=== PATIENT | female | born 1960 | race Caucasian/White ===

== ENCOUNTER 2019-10-30 02:21 | Observation (INO) | payer MEDICAID ==
[~2019-10-30] VITALS: Ht 162.6 cm; Wt 91.3 kg
[2019-10-30] MEDS ORDERED: GUAISYP9 PO (02:59)
[2019-10-30] MEDS ORDERED: AMBI10TA PO (02:59)
[2019-10-30] MEDS ORDERED: GABA-1171 PO (02:59)
[2019-10-30] MEDS ORDERED: IPRA0.00 NEB (02:59)
[2019-10-30] MEDS ORDERED: duo neb (02:59)
[2019-10-30] MEDS ORDERED: NS 1,000 ML IV ONE (03:45)
[2019-10-30 04:12] LABS: BASO # 0.1 10^3/uL (0.0-0.2); BASO % 0.9 % (0.0-1.0); EOS # 0.7 10^3/uL (0.0-0.5); EOS % 6.8 % (0.0-3.0); HEMATOCRIT 37.1 % (36.0-47.0); HEMOGLOBIN 11.9 g/dl (12.0-15.5); LYMPH # 2.2 10^3/uL (1.5-5.0); LYMPH % 22.4 % (24.0-44.0); MEAN CORPUSCULAR HEMOGLOBIN 29.8 pg (27.0-33.0); MEAN CORPUSCULAR HGB CONC 32.1 g/dl (32.0-36.5); MONO # 0.8 10^3/uL (0.0-0.8); NEUTROPHILS % 61.5 % (36.0-66.0); PLATELET COUNT, AUTOMATED 344 10^3/uL (150-450); RED BLOOD COUNT 3.99 10^6/uL (4.00-5.40); WHITE BLOOD COUNT 9.7 10^3/uL (4.0-10.0)
[2019-10-30 04:50] LABS: ACETAMINOPHEN LEVEL < 2.0 UG/ML (10.0-30.0); BLOOD UREA NITROGEN 17 MG/DL (7-18); CALCIUM LEVEL 8.7 MG/DL (8.5-10.1); CARBON DIOXIDE LEVEL 29 MEQ/L (21-32); CHLORIDE LEVEL 108 MEQ/L (98-107); CREATININE FOR GFR 0.99 MG/DL (0.55-1.30); ETHYL ALCOHOL (ETHANOL) < 0.003 % (0.000-0.010); GLOMERULAR FILTRATION RATE > 60.0 (>51); GLUCOSE, FASTING 105 MG/DL (70-100); POTASSIUM SERUM 4.1 MEQ/L (3.5-5.1); SALICYLATE LEVEL < 1.7 MG/DL (5.0-30.0); SODIUM LEVEL 143 MEQ/L (136-145)
[2019-10-30 05:13] LABS: AMPHETAMINES LEVEL URINE NEGATIVE (NEGATIVE); BARBITURATES URINE NEGATIVE (NEGATIVE); BENZODIAZEPINES URINE NEGATIVE (NEGATIVE); CANNABINOIDS URINE NEGATIVE (NEGATIVE); COCAINE METABOLITE URINE NEGATIVE (NEGATIVE); METHADONE URINE NEGATIVE (NEGATIVE); OPIATES URINE NEGATIVE (NEGATIVE); PHENCYCLIDINE URINE NEGATIVE (NEGATIVE)
[2019-10-30 08:32] LABS: ABG BASE EXCESS -1.9 (-2.0-2.0); ABG HCO3 21.1 MEQ/L (22.0-26.0); ABG PARTIAL PRESSURE CO2 30.5 mmHg (35.0-45.0); ABG PARTIAL PRESSURE O2 144.4 mmHg (75.0-100.0); ABG STANDARD HCO3 22.9 MEQ/L (22.0-26.0); ABG pH (ARTERIAL) 7.458 UNITS (7.350-7.450)
[2019-10-30] MEDS ORDERED: HYDR-3713 PO (08:47)
[2019-10-30] MEDS ORDERED: ALBU8.5H INH (08:47)
[2019-10-30] MEDS ORDERED: VARE1TA PO (08:47)
[2019-10-30] MEDS ORDERED: CYCL-707 PO (08:52)
[2019-10-30] MEDS ORDERED: IBUP-1022 PO (08:52)
[2019-10-30] MEDS ORDERED: BUPR50TA PO (08:52)
[2019-10-30] MEDS ORDERED: VITA50005 PO (08:52)
[2019-10-30] MEDS ORDERED: SERT-138 PO (08:52)
[2019-10-30] MEDS ORDERED: DULO1CAP6 PO (08:52)
[2019-10-30] MEDS ORDERED: DULO1CAP5 PO (08:52)
[2019-10-30] MEDS ORDERED: ZOLP10TA2 PO (08:52)
--- NOTE | 2019-10-30 10:32 | ECGEPIP ---
[facility] - ED Test Date: 2019-10-30 Pat Name: PERLA MENDOZA Department: Room: - Gender: Female [employer]im[employer]: kk : [id number] Requested By: DEWAYNE [place] Order Number: [id number] Reading MD: Sandy Cruz Measurements Intervals [place] Rate: 95 P: 78 WA: 150 QRS: 81 QRSD: 97 T: 58 QT: 356 QTc: 448 Interpretive Statements SINUS RHYTHM NSTTW abnormalities No prior Electronically Signed on 10-30-2019 10:32:06 EDT by Sandy Cruz
--- NOTE | 2019-10-30 10:44 | REP ---
Clinical: Altered mental status . Comparison: None . Findings: The ventricles, sulci, and cisterns are normal in position and appearance. Villeda-white differentiation is maintained. No acute intracranial hemorrhage, mass/mass effect, pathology or trauma/injury. No evidence for acute infarction. No extra-axial fluid collection. Calvarium is intact. Large mucocele identified in the right maxillary sinus. Impression: Normal noncontrast head CT. No evidence for acute intracranial pathology or trauma/injury. Electronically Signed by Edy Dominguez MD 10/30/2019 10:37 A
--- NOTE | 2019-10-30 12:13 | REP ---
Clinical: Wheezing. Technique: PA and lateral. Comparison: None. Findings: Chronic scoliosis. The cardiac silhouette is normal. Lung jules are relatively clear and without focal consolidation, effusion, or pneumothorax. Impression: No focal consolidation or effusion. Electronically Signed by Edy Dominguez MD 10/30/2019 12:05 P
[2019-10-30 13:03] VITALS: BP 133/77
[2019-10-30] MEDS ORDERED: ALBUTEROL 90 MCG/ACT 8GM HFA INHALER INH PRN (13:30)
[2019-10-30] MEDS ORDERED: CYCLOBENZAPRINE 10MG TABLET PO PRN (13:30)
[2019-10-30] MEDS ORDERED: IBUPROFEN 600MG TAB PO PRN (13:30)
--- NOTE | 2019-10-30 13:33 | HPEPDOC ---
[facility] Medical History & Physical Date of Admission Oct 30, 2019 Date of Service: Oct 30, 2019 Primary Care Physician: Ady Arnold Attending Physician: Brenda Moy MD History and Physical CHIEF COMPLAINT: Altered mental status HISTORY OF PRESENT ILLNESS: The patient is a 59-year-old female past mental history of COPD, depression, anxiety, and vitamin D deficiency, chronic neck and back pain secondary to scoliosis, tobacco use history and insomnia who presented to [facility] emergency room after arriving by ambulance stating that she was "feeling weird". The patient was also complaining of lightheadedness and admitted to taking multiple Ambien only 10 minutes apart last evening at approximately 10 PM. Her son who was in the emergency room thinks she had been taking more of her medications and she is posterior recently, possibly up to 6 pills. On arrival her speech was slurred, she appeared very lethargic and sleepy. She was falling asleep when answering questions to the emergency provider. She was moving her arms and legs well and without difficulty. Stroke score was low. CT of the head was negative. All labs were unremarkable. ABG was unremarkable. Toxicology negative. The patient spent several hours in the emergency room with IV fluids and when reassessed, she was still altered. Vital signs were stable. She denied chest pain, shortness of breath, nausea, vomiting, fevers, chills, lightheadedness, dizziness, events of earlier in the day. She did not know where she was, when at baseline she would be very easily able to tell someone that. Ultimately the patient was admitted under observation stay for encephalopathy likely secondary to medication (Ambien) disease. REVIEW OF SYSTEMS: Neg except for what is mentioned above. PAST MEDICAL HISTORY: 1. COPD 2. Depression 3. Anxiety 4. Vitamin D deficiency 5. History of shingles 6. Neuropathic pain status post shingles infection 7. Chronic neck and back pain 8. Scoliosis 9. Degenerative joint disease 10. Insomnia 11. Tobacco use history PAST SURGICAL HISTORY: 1. 6 C-sections 2. Cholecystectomy 3. Hernia repair 2 4. Right wrist surgery FAMILY HISTORY: Father: No medical issues. at 88 years old Mother: Cysts. at 63 years old SOCIAL HISTORY: Smoker for 20 years, 12 packs per day, quit 2019. Denies alcohol use. Smokes marijuana several times per week, denies other illicit drug use. Denies IV drug use history. Primary care provider is local, no special needs. 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 ALLERGIES: Please see below. HOME MEDICATIONS: Please see below. PHYSICAL EXAMINATION: CONSTITUTIONAL: No acute distress, resting comfortably, AAO x 2 EYES: PERRLA, EOM intact HENT, MOUTH: Normocephalic, atraumatic, moist mucous membranes, NECK: SUPPLE, no JVD, no lymphadenopathy, no carotid bruit CV: Regular rate and rhythm, S1S2 normal, no murmurs/rubs/gallops RESPIRATORY: Wheezy bilaterally, no rales/rhonchi GI: BS positive in 4 quadrants, soft, nontender, nondistended, no rebound or guarding, no organomegaly : Deferred MUSCULOSKELETAL: Normal ROM. No cyanosis, clubbing, swelling, joint deformity, +2 pitting extremity edema INTEGUMENTARY: Intact, no rashes, no lesions, no erythema NEUROLOGIC: Cranial Nerves II-XII are intact, no focal deficits PSYCHIATRIC: Mood and affect are normal LABORATORY DATA: Please see below IMAGING: CT head: No acute intracranial abnormalities, large retention cyst in the right maxillary sinus Chest x-ray: No acute cardiopulmonary issue ASSESSMENT: The patient is a 59-year-old female past mental history of COPD, depression, anxiety, and vitamin D deficiency, chronic neck and back pain s econdary to scoliosis, tobacco use history and insomnia who was admitted for encephalopathy likely secondary to unintentional overdose of Ambien. PLAN: 1. Encephalopathy likely secondary to unintentional overdose of Ambien. -Patient states she only took 2 Ambien; however, family states she could've taken up to 6. -UDS neg, even for opiates (has oxy/acetaminophen PRN at home) -Currently she is awake and alert oriented [address]. She cannot recall the events of earlier today -Continue with IV fluids at 75 mL an hour, diet and will hold Ambien this evening. 2. COPD, not in exacerbation. -Currently on room air, saturating at 93%, mild expiratory wheezing -Chest x-ray unremarkable -Duo nebs 3 times a day, albuterol when necessary. 3. Depression/anxiety. -Denies homicidal or suicidal ideation. Unintentional overdose above. -Continue with home medication 4. Lower extremity edema, worsened over the past several days. -Chest x-ray shows no signs of fluid overload, no prior history of CHF. -ECG NSR -Follow up BNP, troponin -Consider low-dose Lasix, teds stockings 5. Chronic neck and back pain secondary to scoliosis, degenerative joint disease. -Continue home pain medication 6. Tobacco use history -Continue home Chantix 7. Neuropathic pain secondary to history of shingles. -Continue gabapentin 8. DVT prophylaxis. -Enoxaparin daily DISPOSITION: Admitted under observation status. Plan is home when ready for discharge. Vital Signs Vital Signs Date Time Temp Pulse Resp B/P (MAP) Pulse Ox O2 Delivery O2 Flow Rate FiO2 10/30/19 12:45 92 18 124/76 (92) 93 Room Air 10/30/19 12:21 98.0 Laboratory Data Labs 24H Laboratory Tests 2 10/30/19 03:59: Bedside Glucose (Misc Panel) 109H 10/30/19 04:02: Immature Granulocyte % (Auto) 0.4, Neutrophils (%) (Auto) 61.5, Lymphocytes (%) (Auto) 22.4L, Monocytes (%) (Auto) 8.0H, Eosinophils (%) (Auto) 6.8H, Basophils (%) (Auto) 0.9, Neutrophils # (Auto) 6.0, Lymphocytes # (Auto) 2.2, Monocytes # (Auto) 0.8, Eosinophils # (Auto) 0.7H, Basophils # (Auto) 0.1, Nucleated Red Blood Cells % (auto) 0.0, Anion Gap 6L, Glomerular Filtration Rate > 60.0, Calcium Level 8.7, Total Bilirubin 0.2, Direct Bilirubin 0.2, Aspartate Amino Transf (AST/SGOT) 18, Alanine Aminotransferase (ALT/SGPT) 21, Alkaline Phosphatase 107, Total Creatine Kinase 178, Total Protein 6.4, Albumin 3.1L, Albumin/Globulin Ratio 0.9L, Thyroid Stimulating Hormone (TSH) 3.210, Salicylates Level < 1.7L, Acetaminophen Level < 2.0L, Ethyl Alcohol Level < 0.003 10/30/19 04:43: Urine Opiates Screen NEGATIVE, Urine Methadone Screen NEGATIVE, Urine Barbiturates Screen NEGATIVE, Urine Phencyclidine Screen NEGATIVE, Urine Amphetamines Screen NEGATIVE, Urine Benzodiazepines Screen NEGATIVE, Urine Cocaine Metabolite Screen NEGATIVE, Urine Cannabinoids Screen NEGATIVE 10/30/19 07:40: Ammonia 23 10/30/19 08:24: Blood Gas Bicarbonate Standard 22.9, Arterial Blood pH 7.458H, Arterial Blood Partial Pressure CO2 30.5L, Arterial Blood Partial Pressure O2 144.4H, Arterial Blood Total CO2 22.0, Arterial Blood HCO3 21.1L, Arterial Blood Base Excess - 1.9, Arterial Blood Oxygen Saturation 99.0 CBC/BMP Laboratory Tests 10/30/19 04:02 Home Medications Scheduled Bupropion HCl (Bupropion HCl) 100 Mg Tablet, 100 MG PO BID Duloxetine Hcl (Duloxetine HCl) 60 Mg Capsule.dr, 60 MG PO DAILY 90MG TOTAL DOSE Duloxetine Hcl (Duloxetine HCl) 30 Mg Capsule.dr, 30 MG PO DAILY 90MG TOTAL DOSE Ergocalciferol (Vitamin D2) (Vitamin D2) 50,000 Units Cap, 50,000 UNITS PO QMONTH SOMETIME IN THE BEGINNING OF EACH MONTH, NO SET DAY. HAS NOT TAKEN DOSE FOR OCTOBER YET Gabapentin (Gabapentin) 100 Mg Capsule, 200 MG PO TID Sertraline HCl (Sertraline HCl) 100 Mg Tablet, 100 MG PO DAILY Varenicline (Chantix) 1 Mg Tablet, 1 MG PO BID Scheduled PRN Albuterol Sulfate (Albuterol Sulfate Hfa) 8.5 Gm Hfa.aer.ad, 2 PUFFS INH Q4H PRN for SHORTNESS OF BREATH Cyclobenzaprine HCl (Cyclobenzaprine HCl) 10 Mg Tablet, 10 MG PO TID PRN for SPASMS Hydrocodone/Acetaminophen (Hydrocodone-Acetamin 5-325 mg) 1 Each Tablet, 1 TAB PO Q6H PRN for PAIN Ibuprofen (Ibuprofen) 600 Mg Tablet, 600 MG PO Q6H PRN for PAIN Ipratropium/Albuterol Sulfate (Iprat-Albut 0.5-3(2.5) mg/3 ml) 3 Ml Ampul.neb, 1 VIAL NEB Q2H PRN for SHORTNESS OF BREATH Zolpidem Tartrate (Zolpidem Tartrate) 10 Mg Tablet, 10 MG PO QHS PRN for SLEEP Allergies Coded Allergies: brompheniramine (Verified Allergy, Intermediate, "fat for a week then it goes away", 10/30/19) phenylpropanolamine (Verified Allergy, Intermediate, "fat for a week then it goes away", 10/30/19) A-FIB/CHADSVASC A-FIB History Current/History of A-Fib/PAF?: No Current PO Anticoag Therapy: No Age/Risk Factor Scoring CHADSVASC: CHADSVASC Response (Comments) Value Age Risk Factor Age < 65 years old 0 Gender Risk Factor Female 1 Hx of CHF No 0 Hx of HTN No 0 Hx of Stroke/TIA/or VTE No 0 Hx of Diabetes No 0 Hx of Vascular Disease No 0 Total 1 Treatment Treatment ordered: Other (enoxaparin) Other anticoagulant ordered: enoxaparin Brenda Moy MD Oct 30, 2019 13:33
[2019-10-30] MEDS: SERTRALINE 100 MG TAB PO SCH (13:51)
[2019-10-30] MEDS: DULoxetine 30 MG CAP (CYMBALTA) PO SCH (13:51)
[2019-10-30] MEDS: NORCO, ANEXSIA 5/325MG TABLET (HYDROcodone/ACETAMINOPHEN) PO PRN (13:52)
[2019-10-30] MEDS: NS 1,000 ML IV SCH (13:54)
[2019-10-30 14:00] VITALS: BP 121/76
[2019-10-30 14:26] LABS: ALBUMIN 3.2 GM/DL (3.2-5.2); ALT/SGPT 20 U/L (12-78); BILIRUBIN,DIRECT < 0.1 MG/DL (0.0-0.2); BILIRUBIN,TOTAL 0.2 MG/DL (0.2-1.0); CPK CREATINE PHOSPHOKINASE 170 U/L (26-192); NT-PRO BNP 105 PG/ML (<125); TOTAL PROTEIN 6.4 GM/DL (6.4-8.2); TROPONIN I < 0.02 NG/ML (< 0.10)
[2019-10-30] MEDS: IPRATROPIUM 0.5MG/ALBUTEROL 2.5MG INH SOL UD 3ML (DUONEB) NEB SCH ×2 (14:33→20:28)
[2019-10-30] MEDS: GABAPENTIN 100 MG CAP PO SCH ×2 (16:06→20:04)
[2019-10-30] MEDS: buPROPion 100 MG TAB PO SCH (20:04)
[2019-10-30] MEDS: VARENICLINE 1 MG TABLET PO SCH (20:04)
[2019-10-30 22:00] VITALS: BP 118/72
[2019-10-31] MEDS: NS 1,000 ML IV SCH (02:12)
[2019-10-31] MEDS: NORCO, ANEXSIA 5/325MG TABLET (HYDROcodone/ACETAMINOPHEN) PO PRN (04:04)
[2019-10-31 06:00] VITALS: BP 128/87
[2019-10-31 06:30] LABS: HEMATOCRIT 37.6 % (36.0-47.0); HEMOGLOBIN 11.9 g/dl (12.0-15.5); MEAN CORPUSCULAR HEMOGLOBIN 29.4 pg (27.0-33.0); MEAN CORPUSCULAR HGB CONC 31.6 g/dl (32.0-36.5); MEAN CORPUSCULAR VOLUME 92.8 fl (80.0-96.0); PLATELET COUNT, AUTOMATED 345 10^3/uL (150-450); RED BLOOD COUNT 4.05 10^6/uL (4.00-5.40); WHITE BLOOD COUNT 6.5 10^3/uL (4.0-10.0)
[2019-10-31 07:01] LABS: ALBUMIN 2.7 GM/DL (3.2-5.2); ALT/SGPT 21 U/L (12-78); BILIRUBIN,TOTAL 0.5 MG/DL (0.2-1.0); BLOOD UREA NITROGEN 8 MG/DL (7-18); CALCIUM LEVEL 8.6 MG/DL (8.5-10.1); CARBON DIOXIDE LEVEL 28 MEQ/L (21-32); CHLORIDE LEVEL 112 MEQ/L (98-107); CREATININE FOR GFR 0.88 MG/DL (0.55-1.30); GLOMERULAR FILTRATION RATE > 60.0 (>51); GLUCOSE, FASTING 91 MG/DL (70-100); POTASSIUM SERUM 4.3 MEQ/L (3.5-5.1); SODIUM LEVEL 143 MEQ/L (136-145); TOTAL PROTEIN 5.8 GM/DL (6.4-8.2)
[2019-10-31] MEDS: IPRATROPIUM 0.5MG/ALBUTEROL 2.5MG INH SOL UD 3ML (DUONEB) NEB SCH (07:27)
[2019-10-31] MEDS: SERTRALINE 100 MG TAB PO SCH (07:57)
[2019-10-31] MEDS: VARENICLINE 1 MG TABLET PO SCH (07:57)
[2019-10-31] MEDS: DULoxetine 30 MG CAP (CYMBALTA) PO SCH (07:58)
[2019-10-31] MEDS: GABAPENTIN 100 MG CAP PO SCH (07:58)
[2019-10-31] MEDS: buPROPion 100 MG TAB PO SCH (07:58)
[2019-10-31] MEDS ORDERED: ENOXAPARIN 40MG/0.4ML SYRINGE (J1650 PER 10MG) SC SCH (09:00)
[2019-10-31] MEDS ORDERED: DULoxetine 30 MG CAP (CYMBALTA) PO SCH (09:00)
--- NOTE | 2019-10-31 14:21 | DS.PDOC ---
Discharge Summary General Date of Admission Oct 30, 2019 at 02:22 Date of Discharge 10/31/19 Primary Care Physician: Ady Arnold Attending Physician: Brenda Moy MD Discharge Summary HISTORY OF PRESENT ILLNESS: The patient is a 59-year-old female past mental history of COPD, depression, anxiety, and vitamin D deficiency, chronic neck and back pain secondary to scoliosis, tobacco use history and insomnia who presented to [facility] emergency room after arriving by ambulance stating that she was "feeling weird". The patient was also complaining of lightheadedness and admitted to taking multiple Ambien only 10 minutes apart last evening at approximately 10 PM. Her son who was in the emergency room thinks she had been taking more of her medications and she is posterior recently, possibly up to 6 pills. On arrival her speech was slurred, she appeared very lethargic and sleepy. She was falling asleep when answering questions to the emergency provider. She was moving her arms and legs well and without difficulty. Stroke score was low. CT of the head was negative. All labs were unremarkable. ABG was unremarkable. Toxicology negative. The patient spent several hours in the emergency room with IV fluids and when reassessed, she was still altered. Vital signs were stable. She denied chest pain, shortness of breath, nausea, vomiting, fevers, chills, lightheadedness, dizziness, events of earlier in the day. She did not know where she was, when at baseline she would be very easily able to tell someone that. Ultimately the patient was admitted under observation stay for encephalopathy likely secondary to medication (Ambien) disease. HOSPITAL COURSE: Patient was continued on IV fluids and nighttime Ambien was held before her bedtime. She had no acute events overnight. No complaints by nursing that the patient was increasingly altered and she slept well. His morning the patient denied any lightheadedness, dizziness, unsteadiness on her feet, fevers, chills, chest pain. She appeared to be at her baseline and was awake alert oriented 3. The patient was discharged home in improved condition on 10/31/2019 and encouraged to follow-up with her primary care provider after the weekend. She was also advised not to take more than her scheduled and prescribed Ambien dose. She was in agreement with this. REVIEW OF SYSTEMS: Neg except for what is mentioned above. PAST MEDICAL HISTORY: 1. COPD 2. Depression 3. Anxiety 4. Vitamin D deficiency 5. History of shingles 6. Neuropathic pain status post shingles infection 7. Chronic neck and back pain 8. Scoliosis 9. Degenerative joint disease 10. Insomnia 11. Tobacco use history PAST SURGICAL HISTORY: 1. 6 C-sections 2. Cholecystectomy 3. Hernia repair 2 4. Right wrist surgery FAMILY HISTORY: Father: No medical issues. at 88 years old Mother: Cysts. at 63 years old SOCIAL HISTORY: Smoker for 20 years, 12 packs per day, quit 2019. Denies alcohol use. Smokes marijuana several times per week, denies other illicit drug use. Denies IV drug use history. Primary care provider is local, no special needs. 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 ALLERGIES: Please see below. DISCHARGE MEDICATIONS: Please see below. PHYSICAL EXAMINATION: VITAL SIGNS: Please see below CONSTITUTIONAL: No acute distress, resting comfortably, AAO x 3 EYES: PERRLA, EOM intact HENT, MOUTH: Normocephalic, atraumatic, moist mucous membranes, NECK: SUPPLE, no JVD, no lymphadenopathy, no carotid bruit CV: Regular rate and rhythm, S1S2 normal, no murmurs/rubs/gallops RESPIRATORY: Mild expiratory wheezing- says is baseline, no rales/rhonchi GI: BS positive in 4 quadrants, soft, nontender, nondistended, no rebound or guarding, no organomegaly : Deferred MUSCULOSKELETAL: Normal ROM. No cyanosis, clubbing, swelling, joint deformity, +2 pitting extremity edema INTEGUMENTARY: Intact, no rashes, no lesions, no erythema NEUROLOGIC: Cranial Nerves II-XII are intact, no focal deficits PSYCHIATRIC: Mood and affect are normal LABORATORY DATA: Please see below IMAGING: CT head: No acute intracranial abnormalities, large retention cyst in the right maxillary sinus Chest x-ray: No acute cardiopulmonary issue ASSESSMENT: The patient is a 59-year-old female past mental history of COPD, depression, anxiety, and vitamin D deficiency, chronic neck and back pain secondary to scoliosis, tobacco use history and insomnia who was admitted for encephalopathy likely secondary to unintentional overdose of Ambien. PLAN: 1. Encephalopathy likely secondary to unintentional overdose of Ambien. Resolved. -AAOx3, baseline currently -UDS neg, even for opiates (has oxy/acetaminophen PRN at home) -She is advised to only take her prescribed dosing of Ambien and followed closely with her primary care provider. 2. COPD, not in exacerbation. -Prior smoker -Currently on room air, saturating at 93%, mild expiratory wheezing -Chest x-ray unremarkable -Continue with home medication 3. Depression/anxiety. -Denies homicidal or suicidal ideation. Unintentional overdose above. -Continue with home medication 4. Lower extremity edema, worsened over the past several days. -Chest x-ray shows no signs of fluid overload, no prior history of CHF. -ECG NSR - BNP wnl, troponin wnl -Encourage patient to wear Dashawn stockings at home,compression stockings 5. Chronic neck and back pain secondary to scoliosis, degenerative joint disease. -Continue home pain medication 6. Tobacco use history -Continue home Chantix 7. Neuropathic pain secondary to history of shingles. -Continue gabapentin 8. DVT prophylaxis. -Enoxaparin daily DISPOSITION: Discharge home today in improved condition. F/u with PCP after holiday weekend. No medication changes. TIME SPENT ON DISCHARGE: Greater than 30 minutes. Vital Signs/I&Os Vital Signs Date Time Temp Pulse Resp B/P (MAP) Pulse Ox O2 Delivery O2 Flow Rate FiO2 10/31/19 06:00 97.8 85 18 128/87 (101) 95 Room Air I&O- Last 24 Hours up to 6 AM 10/31/19 05:59 Intake Total 1270 ml Output Total 500 ml Balance 770 ml Laboratory Data Labs 24H Laboratory Tests 2 10/31/19 06:09: Nucleated Red Blood Cells % (auto) 0.0, Anion Gap 3L, Glomerular Filtration Rate > 60.0, Calcium Level 8.6, Total Bilirubin 0.5#, Aspartate Amino Transf (AST/SGOT) 21, Alanine Aminotransferase (ALT/SGPT) 21, Alkaline Phosphatase 84, Total Protein 5.8L, Albumin 2.7L, Albumin/Globulin Ratio 0.9L CBC/BMP Laboratory Tests 10/31/19 06:09 Discharge Medications Scheduled Bupropion HCl (Bupropion HCl) 100 Mg Tablet, 100 MG PO BID, (Reported) Duloxetine Hcl (Duloxetine HCl) 60 Mg Capsule.dr, 60 MG PO DAILY, (Reported) 90MG TOTAL DOSE Duloxetine Hcl (Duloxetine HCl) 30 Mg Capsule.dr, 30 MG PO DAILY, (Reported) 90MG TOTAL DOSE Ergocalciferol (Vitamin D2) (Vitamin D2) 50,000 Units Cap, 50,000 UNITS PO QMONTH, (Reported) SOMETIME IN THE BEGINNING OF EACH MONTH, NO SET DAY. HAS NOT TAKEN DOSE FOR OCTOBER YET Gabapentin (Gabapentin) 100 Mg Capsule, 200 MG PO TID, (Reported) Sertraline HCl (Sertraline HCl) 100 Mg Tablet, 100 MG PO DAILY, (Reported) Varenicline (Chantix) 1 Mg Tablet, 1 MG PO BID, (Reported) Scheduled PRN Albuterol Sulfate (Albuterol Sulfate Hfa) 8.5 Gm Hfa.aer.ad, 2 PUFFS INH Q4H PRN for SHORTNESS OF BREATH, (Reported) Cyclobenzaprine HCl (Cyclobenzaprine HCl) 10 Mg Tablet, 10 MG PO TID PRN for SPASMS, (Reported) Hydrocodone/Acetaminophen (Hydrocodone-Acetamin 5-325 mg) 1 Each Tablet, 1 TAB PO Q6H PRN for PAIN, (Reported) Ibuprofen (Ibuprofen) 600 Mg Tablet, 600 MG PO Q6H PRN for PAIN, (Reported) Ipratropium/Albuterol Sulfate (Iprat-Albut 0.5-3(2.5) mg/3 ml) 3 Ml Ampul.neb, 1 VIAL NEB Q2H PRN for SHORTNESS OF BREATH, (Reported) Zolpidem Tartrate (Zolpidem Tartrate) 10 Mg Tablet, 10 MG PO QHS PRN for SLEEP, (Reported) Allergies Coded Allergies: brompheniramine (Verified Allergy, Intermediate, "fat for a week then it goes away", 10/30/19) phenylpropanolamine (Verified Allergy, Intermediate, "fat for a week then it goes away", 10/30/19) Brenda Moy MD Oct 31, 2019 14:21
== END 2019-10-31 11:07 | disposition home or self-care (01) ==
LOC: M ED 02:21 → M ED INP 02:22 → ENRESERV 12:11 → M MSPAV 13:01
PROVIDERS: ADMIT Internal Medicine; ATTEND Internal Medicine
DX: G93.40 Encephalopathy, unspecified (principal); T42.71XA Poisoning by unspecified antiepileptic and sedative-hypnotic drugs, accidental (unintentional), initial encounter; R60.0 Localized edema; J44.9 Chronic obstructive pulmonary disease, unspecified; E55.9 Vitamin D deficiency, unspecified; M41.9 Scoliosis, unspecified; G89.29 Other chronic pain; G47.00 Insomnia, unspecified; Z87.891 Personal history of nicotine dependence; F12.10 Cannabis abuse, uncomplicated; Z79.51 Long term (current) use of inhaled steroids; Z79.899 Other long term (current) drug therapy
CPT/HCPCS: 36415; 36600; 70450; 71046; 80048; 80053; 80076; 80307; 82140; 82550; 82803; 83880; 84443; 85025; 85027; 93005; 93041; 94640; 94760; 96360; 96361; 96372; 99285; G0480; J1650

== ENCOUNTER 2022-09-01 13:50 | Inpatient (IN) | payer OTHER ==
[~2022-09-01] VITALS: Ht 162.6 cm; Wt 71.2 kg
[~2022-09-01 13:50] MED LIST: ALBU8.5H INH; AMBI10TA PO; BUPR-69 PO; CYCL-707 PO; DULO1CAP5 PO; DULO1CAP6 PO; ERGO500029 PO; GABA-1171 PO; GUAISYP9 PO; HYDR-3713 PO; IBUP-1022 PO; IPRA0.00 NEB; SERT-138 PO; VARE1TA PO; ZOLP10TA2 PO; duo neb
[2022-09-01] MEDS ORDERED: methylPREDNISolone 125MG 2ML VIAL IV ONE (14:15)
[2022-09-01] MEDS ORDERED: ACETAMINOPHEN TAB 650MG DOSE (2X325MG) PO ONE (14:25)
[2022-09-01 14:30] LABS: BASO % 0.4 % (0.0-1.0); EOS # 0.2 10^3/uL (0.0-0.5); HEMATOCRIT 36.3 % (36.0-47.0); HEMOGLOBIN 11.9 g/dl (12.0-15.5); LYMPH % 10.5 % (24.0-44.0); MEAN CORPUSCULAR HEMOGLOBIN 30.6 pg (27.0-33.0); MEAN CORPUSCULAR HGB CONC 32.8 g/dl (32.0-36.5); MEAN CORPUSCULAR VOLUME 93.3 fl (80.0-96.0); MONO % 9.7 % (2.0-8.0); NEUTROPHILS # 7.5 10^3/uL (1.5-8.5); NEUTROPHILS % 76.6 % (36.0-66.0); PLATELET COUNT, AUTOMATED 300 10^3/uL (150-450); RED BLOOD COUNT 3.89 10^6/uL (4.00-5.40); WHITE BLOOD COUNT 9.8 10^3/uL (4.0-10.0)
[2022-09-01 14:56] LABS: ALBUMIN 3.2 G/DL (3.2-5.2); ALKALINE PHOSPHATASE 88 U/L (46-116); ALT/SGPT 20 U/L (7.0-40); AST/SGOT 41 U/L (<34); BILIRUBIN,DIRECT 0.1 MG/DL (<0.4); BILIRUBIN,TOTAL 0.5 MG/DL (0.3-1.2); BLOOD UREA NITROGEN 17 MG/DL (9-23); CARBON DIOXIDE LEVEL 25 MMOL/L (20-31); CHLORIDE LEVEL 103 MMOL/L (98-107); CREATININE FOR GFR 0.87 MG/DL (0.55-1.30); GLOMERULAR FILTRATION RATE > 60.0 (>45); GLUCOSE, FASTING 128 MG/DL (74-106); POTASSIUM SERUM 4.8 MMOL/L (3.5-5.1); SODIUM LEVEL 135 MMOL/L (136-145); TOTAL PROTEIN 6.5 G/DL (5.7-8.2)
[2022-09-01] MEDS: IPRATROPIUM 0.5MG/ALBUTEROL 2.5MG INH SOL UD 3ML (DUONEB) NEB PRN ×2 (15:20→16:14)
[2022-09-01 15:27] LABS: VENOUS BASE EXCESS 2.2 (-2.0-2.0); VENOUS HCO3 26.7 MMOL/L (23.0-27.0); VENOUS O2 SATURATION 96.2 % (60.0-80.0); VENOUS PARTIAL PRESSURE CO2 40.7 mmHg (38.0-50.0); VENOUS PARTIAL PRESSURE O2 79.1 mmHg (30.0-50.0); VENOUS PH 7.434 UNITS (7.330-7.430); VENOUS STANDARD HCO3 26.4 MMOL/L; VENOUS TOTAL CO2 27.9 MMOL/L (24.0-28.0)
[2022-09-01] MEDS ORDERED: PERCOCET 5MG/325MG TAB PO ONE (15:45)
[2022-09-01] MEDS ORDERED: ISOVUE-370 76% 100ML VIAL As Ordered ONE (19:07)
[2022-09-01] MEDS: OLANZapine 10 MG TAB PO SCH (21:00)
[2022-09-01] MEDS ORDERED: cefTRIAXone SOD 1 GM in D5W MINI-BAG PLUS 50 ML IV ONE (21:25)
[2022-09-01] MEDS ORDERED: BUSP10TA PO (21:43)
[2022-09-01] MEDS ORDERED: BENZ1TAB5 PO (21:43)
[2022-09-01] MEDS ORDERED: OLAN1TAB20 PO (21:43)
[2022-09-01] MEDS ORDERED: FLUO40CA PO (21:43)
[2022-09-01] MEDS ORDERED: LAMO25TA4 PO (21:43)
[2022-09-01] MEDS ORDERED: HOME MED LIST COMPLETE! XX SCH (21:45)
[2022-09-02] VITALS (11 sets, daily range): BP systolic 102–124; BP diastolic 54–73; O2SAT 93–98
[2022-09-02] MEDS ORDERED: ALBUTEROL SULFATE 2.5MG/0.5ML INH NEB SOLN NEB PRN (00:20)
[2022-09-02] MEDS: GABAPENTIN 100 MG CAP PO SCH ×4 (01:35→20:08)
[2022-09-02] MEDS: busPIRone 10 MG TAB PO SCH ×3 (01:36→20:08)
[2022-09-02] MEDS: BENZTROPINE 1 MG TAB PO SCH ×2 (01:36→20:08)
[2022-09-02] MEDS: AZITHROMYCIN 250MG TABLET PO SCH ×2 (01:36→20:08)
[2022-09-02] MEDS: CYCLOBENZAPRINE 10MG TABLET PO PRN ×2 (04:33→20:08)
[2022-09-02 06:14] LABS: BASO % 0.2 % (0.0-1.0); HEMATOCRIT 34.9 % (36.0-47.0); HEMOGLOBIN 11.4 g/dl (12.0-15.5); LYMPH # 0.5 10^3/uL (1.5-5.0); LYMPH % 7.8 % (24.0-44.0); MEAN CORPUSCULAR HEMOGLOBIN 30.8 pg (27.0-33.0); MEAN CORPUSCULAR HGB CONC 32.7 g/dl (32.0-36.5); MEAN CORPUSCULAR VOLUME 94.3 fl (80.0-96.0); MONO # 0.3 10^3/uL (0.0-0.8); MONO % 4.3 % (2.0-8.0); NEUTROPHILS # 5.2 10^3/uL (1.5-8.5); NEUTROPHILS % 87.2 % (36.0-66.0); PLATELET COUNT, AUTOMATED 270 10^3/uL (150-450)
[2022-09-02] MEDS: IPRATROPIUM 0.5MG/ALBUTEROL 2.5MG INH SOL UD 3ML (DUONEB) NEB SCH ×4 (06:21→19:57)
[2022-09-02 07:02] LABS: BLOOD UREA NITROGEN 15 MG/DL (9-23); CALCIUM LEVEL 8.5 MG/DL (8.3-10.6); CARBON DIOXIDE LEVEL 29 MMOL/L (20-31); CHLORIDE LEVEL 105 MMOL/L (98-107); CREATININE FOR GFR 0.69 MG/DL (0.55-1.30); GLOMERULAR FILTRATION RATE > 60.0 (>45); GLUCOSE, FASTING 124 MG/DL (74-106); POTASSIUM SERUM 4.2 MMOL/L (3.5-5.1); SODIUM LEVEL 139 MMOL/L (136-145)
[2022-09-02] MEDS: NICOTINE 7 MG/24 HR TRANSDERMAL TD SCH (09:11)
[2022-09-02] MEDS: lamoTRIgine 25MG TAB PO SCH (09:12)
[2022-09-02] MEDS: NORCO, ANEXSIA 5/325MG TABLET (HYDROcodone/ACETAMINOPHEN) PO PRN ×2 (13:04→19:35)
[2022-09-02] MEDS: OLANZapine 10 MG TAB PO SCH (20:08)
[2022-09-02] MEDS ORDERED: cefTRIAXone SOD 1 GM in D5W MINI-BAG PLUS 50 ML IV SCH (21:00)
[2022-09-03] VITALS (15 sets, daily range): BP systolic 96–107; BP diastolic 52–65; O2SAT 88–100
[2022-09-03] MEDS: IPRATROPIUM 0.5MG/ALBUTEROL 2.5MG INH SOL UD 3ML (DUONEB) NEB SCH ×2 (01:32→07:53)
[2022-09-03] MEDS: NORCO, ANEXSIA 5/325MG TABLET (HYDROcodone/ACETAMINOPHEN) PO PRN ×2 (01:47→11:01)
[2022-09-03] MEDS: busPIRone 10 MG TAB PO SCH (08:34)
[2022-09-03] MEDS: GABAPENTIN 100 MG CAP PO SCH (08:34)
[2022-09-03] MEDS: lamoTRIgine 25MG TAB PO SCH (08:34)
[2022-09-03] MEDS: NICOTINE 7 MG/24 HR TRANSDERMAL TD SCH (08:35)
[2022-09-05 14:09] LABS: BODY FLUID CULTURE Not indicated. (.); LEGIONELLA ANTIGEN URINE Negative (Negative); ORGANISM ID Not indicated. (.); SPECIMEN SOURCE Urine (.); URINE STREP PNEUMONIAE ANTIGEN Negative (Negative)
== END 2022-09-03 15:18 | disposition home or self-care (01) | DRG 135 ==
LOC: M ED 13:50 → M ED INP 09-02 02:16 → M PCU 09-02 03:09
PROVIDERS: ADMIT Surgery; ATTEND Surgery
DX: S27.321A Contusion of lung, unilateral, initial encounter (principal); J44.9 Chronic obstructive pulmonary disease, unspecified; R05.3 Chronic cough; F17.210 Nicotine dependence, cigarettes, uncomplicated; M54.9 Dorsalgia, unspecified; G89.29 Other chronic pain; G47.00 Insomnia, unspecified; R91.1 Solitary pulmonary nodule; F41.9 Anxiety disorder, unspecified; R09.02 Hypoxemia; V43.52XA Car driver injured in collision with other type car in traffic accident, initial encounter; F31.9 Bipolar disorder, unspecified; Z79.891 Long term (current) use of opiate analgesic; Z79.899 Other long term (current) drug therapy; Z20.822 Contact with and (suspected) exposure to COVID-19; Z88.8 Allergy status to other drugs, medicaments and biological substances

== ENCOUNTER 2025-02-07 17:20 | Observation (INO) | payer OTHER ==
[~2025-02-07] VITALS: Ht 162.6 cm; Wt 61.1 kg
[~2025-02-07 17:20] MED LIST changes: -AMBI10TA PO; +BENZ1TAB5 PO; +BUSP10TA PO; +FLUO40CA PO; -IBUP-1022 PO; +IBUP600T42 PO; +LAMO-18 PO; +OLAN1TAB20 PO; +ZOLP-533 PO; +ZOLP10TA11 PO; -ZOLP10TA2 PO
[2025-02-07 17:47] LABS: BASO # 0.1 10^3/uL (0.0-0.2); BASO % 0.7 % (0.0-1.0); EOS # 0.4 10^3/uL (0.0-0.5); EOS % 3.5 % (0.0-3.0); LYMPH # 1.7 10^3/uL (1.5-5.0); LYMPH % 14.6 % (24.0-44.0); MONO # 1.2 10^3/uL (0.0-0.8); MONO % 9.8 % (2.0-8.0); NEUTROPHILS # 8.4 10^3/uL (1.5-8.5); NEUTROPHILS % 70.8 % (36.0-66.0); PLATELET COUNT, AUTOMATED 322 10^3/uL (150-450)
[2025-02-07 18:09] LABS: ETHYL ALCOHOL (ETHANOL) < 0.003 % (0.000-0.010)
[2025-02-07 18:11] LABS: ALT/SGPT 27 U/L (7.0-40); AST/SGOT 75 U/L (<34); CALCIUM LEVEL 9.1 MG/DL (8.3-10.6); CARBON DIOXIDE LEVEL 32 MMOL/L (20-31); CHLORIDE LEVEL 100 MMOL/L (98-107); CREATININE FOR GFR 1.09 MG/DL (0.55-1.30); GLOMERULAR FILTRATION RATE 57.4 (>45); POTASSIUM SERUM 4.2 MMOL/L (3.5-5.1); SALICYLATE LEVEL < 3.0 MG/DL (<30); SODIUM LEVEL 141 MMOL/L (136-145)
[2025-02-07 18:45] LABS: SP GRAVITY,URINE MANUAL REFLEX 1.020 (1.002-1.035)
[2025-02-07 18:46] LABS: KETONE, URINE MANUAL REFLEX NEGATIVE (NEGATIVE); NITRITE, URINE MANUAL RFX NEGATIVE (NEGATIVE); PROTEIN, URINE MANUAL REFLEX 1+ mg/dL (NEGATIVE); UROBILINOGEN, UA MANUAL REFLEX NORMAL (NORMAL)
[2025-02-07 18:47] LABS: RBC, URINE MAN REFLEX NONE SEEN /hpf (0-3); SQUAMOUS EPITHELIAL URINE RFX SMALL AMOUNT /hpf (SMALL AMT)
[2025-02-07 18:48] LABS: HYALINE CAST, URINE RFX NONE SEEN /lpf (0-1); MICROSCOPIC EXAM RFX PERFORMED
[2025-02-07 18:50] LABS: ABG BASE EXCESS 2.2 (-2.0-2.0); ABG HCO3 26.4 MMOL/L (22.0-26.0); ABG O2 SATURATION 90.2 % (95.0-99.0); ABG PARTIAL PRESSURE CO2 39.6 mmHg (35.0-45.0); ABG PARTIAL PRESSURE O2 55.5 mmHg (75.0-100.0); ABG STANDARD HCO3 26.3 MMOL/L. (22.0-26.0); ABG TOTAL CO2 27.6 MMOL/L (23.0-31.0); ABG pH (ARTERIAL) 7.442 UNITS (7.350-7.450)
[2025-02-07] MEDS: cefTRIAXone SOD 1 GM in DEXTROSE 5% (D5W) ADV/MINI-BAG 50 ML IV ONE (19:10)
[2025-02-07] MEDS: AZITHROMYCIN INJ 500 MG, VIAL MATE ADAPTER 1 EACH in NS 250 ML IV ONE (19:50)
[2025-02-07] MEDS ORDERED: ACETAMINOPHEN 325 MG TAB PO PRN (20:45)
[2025-02-07] MEDS ORDERED: DOCUSATE SODIUM 100 MG CAPSULE PO PRN (20:45)
[2025-02-08] VITALS (8 sets, daily range): BP systolic 102–125; BP diastolic 58–72; TEMP 97.7–98.1; O2SAT 88–98
[2025-02-08] MEDS: IPRATROPIUM 0.5 MG/ALBUTEROL 2.5 MG INH SOL UD 3 ML NEB SCH (01:06)
[2025-02-08 01:16] LABS: AMPHETAMINES LEVEL URINE NEGATIVE (NEGATIVE); BARBITURATES URINE NEGATIVE (NEGATIVE); BENZODIAZEPINES URINE NEGATIVE (NEGATIVE); COCAINE METABOLITE URINE NEGATIVE (NEGATIVE); METHADONE URINE NEGATIVE (NEGATIVE); OPIATES URINE NEGATIVE (NEGATIVE); PHENCYCLIDINE URINE NEGATIVE (NEGATIVE)
[2025-02-08 01:17] LABS: CANNABINOIDS URINE POSITIVE (NEGATIVE)
[2025-02-08] MEDS ORDERED: ADVA1AER8 INH (04:52)
[2025-02-08] MEDS ORDERED: SPIR1CAP INH (04:52)
[2025-02-08] MEDS ORDERED: BUSP30TA PO (04:52)
[2025-02-08] MEDS ORDERED: MAGN400T35 PO (04:52)
[2025-02-08] MEDS ORDERED: LAMO150T3 PO (04:52)
[2025-02-08] MEDS ORDERED: HOME MED LIST COMPLETE! XX SCH (05:00)
[2025-02-08 06:39] LABS: PLATELET COUNT, AUTOMATED 314 10^3/uL (150-450)
[2025-02-08 07:09] LABS: ALT/SGPT 25.0 U/L (7.0-40); AST/SGOT 73.0 U/L (<34); CALCIUM LEVEL 8.5 MG/DL (8.3-10.6); CARBON DIOXIDE LEVEL 27.0 MMOL/L (20-31); CHLORIDE LEVEL 104.0 MMOL/L (98-107); CREATININE FOR GFR 0.87 MG/DL (0.55-1.30); GLOMERULAR FILTRATION RATE 75.3 (>45); POTASSIUM SERUM 4.1 MMOL/L (3.5-5.1); SODIUM LEVEL 139.0 MMOL/L (136-145)
[2025-02-08] MEDS ORDERED: ENOXAPARIN 40 MG/0.4 ML SYRINGE (J1650 PER 10MG) SC SCH (09:00)
[2025-02-08] MEDS: DOXYCYCLINE HYCLATE 100 MG TABLET PO SCH (09:58)
[2025-02-08] MEDS ORDERED: ALBUTEROL 90 MCG/ACT 8 GM HFA INHALER INH PRN (14:55)
[2025-02-08] MEDS ORDERED: lamoTRIgine 100 MG TAB PO ONE (14:55)
[2025-02-08] MEDS: GABAPENTIN 100 MG CAP PO SCH (15:52)
[2025-02-08] MEDS: FLUoxetine 20 MG CAP PO SCH (15:52)
[2025-02-08] MEDS: lamoTRIgine 25 MG TAB PO SCH (15:53)
[2025-02-08] MEDS: lamoTRIgine 100 MG TAB PO SCH (15:53)
[2025-02-08] MEDS: CYCLOBENZAPRINE 10 MG TABLET PO PRN (15:58)
[2025-02-08] MEDS ORDERED: cefTRIAXone SOD 1 GM in DEXTROSE 5% (D5W) ADV/MINI-BAG 50 ML IV SCH (19:00)
[2025-02-09] VITALS: BP 112/71; TEMP 98.1; O2SAT 95
[2025-02-09 04:08] VITALS: BP 113/71; TEMP 98.6; O2SAT 96
[2025-02-09 08:00] VITALS: BP 117/74; TEMP 97.7; O2SAT 98
[2025-02-09] MEDS ORDERED: lamoTRIgine 100 MG TAB PO SCH (09:00)
[2025-02-09] MEDS: CEFDINIR 300 MG CAP PO SCH (09:15)
[2025-02-09] MEDS: predniSONE 10 MG TAB PO SCH (09:16)
[2025-02-09] MEDS ORDERED: DOXY-440 PO (11:08)
[2025-02-09] MEDS ORDERED: CEFD300CAP PO (11:08)
[2025-02-09] MEDS ORDERED: PRED10TA2 PO (11:10)
== END 2025-02-09 12:25 | disposition home or self-care (01) ==
LOC: M ED 17:20 → M ED INP 17:21 → M MSPAV 02-08 03:41
PROVIDERS: ADMIT Student in an Organized Health Care Education/Training Program; ATTEND General Practice
DX: G93.41 Metabolic encephalopathy (principal); N39.0 Urinary tract infection, site not specified; J18.9 Pneumonia, unspecified organism; J98.11 Atelectasis; J96.01 Acute respiratory failure with hypoxia; J44.1 Chronic obstructive pulmonary disease with (acute) exacerbation; G47.00 Insomnia, unspecified; F41.9 Anxiety disorder, unspecified; F32.A Depression, unspecified; Z79.52 Long term (current) use of systemic steroids; Z79.2 Long term (current) use of antibiotics; Z79.899 Other long term (current) drug therapy
CPT/HCPCS: 36415; 36600; 70450; 71045; 72125; 73502; 80047; 80048; 80053; 80076; 80143; 80307; 81000; 81015; 82077; 82140; 82803; 83605; 84443; 85025; 85027; 87040; 87086; 93005; 93041; 94640; 94760; 96365; 96367; 96375; 96376; 97161; 99285; J0456; J0696; J2919; J7512